=== PATIENT | female | born 1965 ===

== ENCOUNTER → 2021-03-01 04:21 | Outpatient (CLI) | payer OTHER, BC, SELFPAY ==
[2021-03-01 19:57] LABS: SARS-CoV-2 RNA PCR Negative
== END ==
PROVIDERS: Visit Provider Surgery Plastic and Reconstructive Surgery
DX: Z01.812 Encounter for preprocedural laboratory examination (principal); Z20.822 Contact with and (suspected) exposure to COVID-19
CPT/HCPCS: C9803; U0003; U0005

== ENCOUNTER 2021-03-04 01:36 | Day surgery (SDC) | payer OTHER, BC, SELFPAY ==
[2021-02-23 09:51] VITALS: BMI 21.6
--- NOTE | 2021-03-03 14:05 | WPDANESEPPF ---
Anes - Initial Pre Proc Eval Procedure: Operation Date: 03/04/21 07:30 Proposed Procedures p Bilateral Upper Blepharoplasty, - Stefano Ledesma MD s Bilateral Subcutaenous Brow Lift - Stefano Ledesma MD Date/Time: 03/03/21 14:05 Surgeon: Stefano Ledesma MD Pre Op Diagnosis: brow ptosis, dermatocholasis Patient Data Age: 55 Gender: F Height: 5 ft 5 in Weight: 59 kg Allergies Allergy/AdvReac Type Severity Reaction Status Date / Time amoxicillin Allergy Diarrhea Verified 03/04/21 06:31 prochlorperazine Allergy Muscle Verified 03/04/21 06:31 [From Compazine] Spasms Home Medications Medication Instructions Recorded Confirmed Type levothyroxine 25 mcg tablet 25 mcg PO DAILY 07/27/20 03/04/21 History ropinirole 0.25 mg tablet 0.25 mg PO BID 07/27/20 03/04/21 History docusate sodium 100 mg capsule 100 mg PO BID #14 cap 02/17/21 03/04/21 Rx hydrocodone 5 mg-acetaminophen 325 1 tablet PO Q6H PRN #15 tablet 02/17/21 03/04/21 Rx mg tablet ondansetron HCl 4 mg tablet 4 mg PO Q6H PRN #30 tablet 02/17/21 03/04/21 Rx citalopram 10 mg PO DAILY 02/23/21 03/04/21 History zolpidem 5 mg PO HS 02/23/21 03/04/21 History Patient hx anesthesia problems: none Family hx anesthesia problems: none [facility] Past Medical History Medical History (Updated 03/03/21 @ 14:05 by Chaitanya Laird MD) Depression Hypothyroidism Migraine Social History Social History Smoking status: Never smoker Alcohol intake: current Drinks per week: 3 Substance use: never Substance use type: does not use Living arrangements: with family Spiritual care concerns: No Anes - Eval Final PreProcedure Day of Procedure 03/03/21 14:05 Patient weight: normal Heart: regular rate and rhythm Lungs: clear to auscultation Airway: Mallampati scale class II Neurological: alert and oriented Last oral intake: >/= 8 hours ASA classification: II Emergent: no Anesthetic plan: proceed Anesthesia type and monitoring: general LMA and standard monitoring Informed Consent: The patient's anesthetic plan and its attendant risks and benefits were discussed with the patient/family/POA. Questions were solicited and answers provided to the satisfaction of the patient/family/POA.
[2021-03-04] VITALS (8 sets, daily range): BP systolic 97–126; BP diastolic 41–84; PULSE 91–112; RESP 14–16; TEMP 36.4–37.4; O2SAT 95–98
[2021-03-04] MEDS: LACTATED RINGERS 1,000 ML 30 ML IV CONT (06:44)
--- NOTE | 2021-03-04 07:07 | WPDHPUPDATE1 ---
History and Physical Update Update Date/Time: 03/04/21 07:07 History and Physical has been reviewed, including an updated exam of the patient. There are NO changes in the patient's condition. Risks, benefits, and alternatives have been discussed and questions answered. Patient agrees to proceed with procedure.
[2021-03-04] MEDS: ceFAZolin 2 GM/D5W 50 ML 2 GM/50 ML BAG IVPB (07:30)
[2021-03-04] MEDS: BUPIVACAINE HCL 0.25% PF 30 ML VIAL INFILTRATE (08:11)
[2021-03-04] MEDS: LIDO 1%/EPINEPHRINE 1:100,000 50 ML VIAL 10 ML INFILTRATE (08:11)
--- NOTE | 2021-03-04 08:54 | PM.PROC ---
Procedure Note - Detailed Date of procedure: 03/04/21 Pre-op diagnosis: brow ptosis, dermatocholasis Post-op diagnosis: same Procedure performed: 1. Bilateral temporal subcutaneous brow lift 2. Bilateral upper eyelid blepharoplasty Description of procedure: Risks, benefits, alternatives were discussed in extensive detail. I want her to be very realistic risks involved as well as expectations. Made sure answered all of her questions to her satisfaction, consent obtained. She was marked in the preoperative holding area. Delcid marking the upper lids I simulated the brow lift. I did a pinch test to verify no lagophthalmos. Taken to the operating room placed supine on the operating room table. Anesthesia was provided by anesthesiology. Prepped and draped in a standard sterile fashion. Surgical time-out was taken. 1% lidocaine and 0.25% Marcaine with epinephrine was used anesthetize the forehead the subcutaneous plane. A 15 blade used to make a hairline incision. Dissection was continued subcutaneous plane until just above the orbital rim as well as laterally. Once I had good mobilization I elevated the brow to the desired position and tacked into place with karla. Placed her in a sitting position to verify positioning as well as symmetry. I trimmed the skin. This was closed with 4-0 nylon. I then verified my upper lid markings. The pinch test before injecting in verified no lagophthalmos again. 1% lidocaine and 0.25% Marcaine with epinephrine was used anesthetize locally. I excised a skin flap. Open the medial and middle compartments and any clearly excess adipose tissue making sure there was good hemostasis. I closed using a running subcuticular 4-0 Prolene. These were held into place with Steri-Strips. Irrigated the eyes with BSS solution. She was woken taken to PACU without difficulty. All instrument sponge counts were correct at the end of the case. Anesthesia: GLMA Surgeon: Stefano Ledesma MD Estimated blood loss (mL): 10 Drains: No Packing: No Pathology: none sent Complications: No immediate complications Condition: stable Disposition: PACU
== END 2021-03-04 10:51 | disposition home or self-care (01) ==
PROVIDERS: Visit Provider Surgery Plastic and Reconstructive Surgery
PROC: (CPT 67900; principal; 2021-03-04 07:30)
PROC: (CPT 15824; 2021-03-04 07:30)
DX: H57.813 Brow ptosis, bilateral (principal); H02.834 Dermatochalasis of left upper eyelid; H02.831 Dermatochalasis of right upper eyelid
CPT/HCPCS: 67900; 15822; A9270; J0690; J1100; J2250; J2405; J2704; J3010; J7120; Q9968